=== PATIENT | male | born 1960 | race Hispanic/Latino ===

== ENCOUNTER 2017-05-05 23:00 | Emergency (ER) | payer MEDICAID ==
[2017-05-05 23:05] VITALS: BP 139/75; PULSE 60; RESP 16; TEMP 98.8; O2SAT 98
--- NOTE | 2017-05-05 23:53 | ED PDOC ---
Lower Extremity Pain/Injury Time Seen by Provider: 05/05/17 23:18 Chief Complaint (Nursing): Lower Extremity Problem/Injury Chief Complaint (Provider): left leg swelling History Per: Patient History/Exam Limitations: no limitations Onset/Duration Of Symptoms: Days (1) Current Symptoms Are (Timing): Still Present Additional History Per: Patient Additional Complaint(s): 56 y/o male history of chronic left venous stasis ulcer presents with left leg pain/swelling x 1 day. Patient states ulcer started as a blister from his shoes one year ago and has gotten bigger and not healed since then. He notes traveling back and forth from [place] to [place], last trip >3 months ago. Patient states he was told by a doctor there he may need hyperbaric therapy for wound healing, but he has not followed up with anyone. Denies fever, nausea /vomiting, numbness/weakness left lower extremity, calf pain, recent travel, tobacco use, chest pain, sob. Past Medical History Reviewed: Historical Data, Nursing Documentation, Vital Signs Vital Signs: Last Vital Signs Temp 98.8 F 05/05/17 23:03 Pulse 60 05/05/17 23:03 Resp 16 05/05/17 23:03 BP 139/75 05/05/17 23:03 Pulse Ox 98 05/05/17 23:03 - Medical History PMH: Arthritis (BACK) Denies: Chronic Kidney Disease - Family History Family History: States: Unknown Family Hx - Immunization History Hx Tetanus Toxoid Vaccination: No Hx Influenza Vaccination: No Hx Pneumococcal Vaccination: No - Home Medications Home Medications: Ambulatory Orders Medication Instructions Recorded Sulfamethoxazole/Trimethoprim 1 tab PO BID #10 tab 03/20/17 [Bactrim DS 800 mg-160 mg] oxyCODONE/Acetaminophen [Percocet 1 ea PO Q6H #20 tab 03/20/17 5/325 mg Tab] Naproxen [Naprosyn] 500 mg PO Q12 PRN #20 tablet 05/06/17 Sulfamethoxazole/Trimethoprim 1 tab PO BID #14 tab 05/06/17 [Bactrim DS 800 mg-160 mg] - Allergies Allergies/Adverse Reactions: Allergies Allergy/AdvReac Type Severity Reaction Status Date / Time ceftriaxone [From Rocephin] Allergy ITCHING Verified 03/19/17 01:51 Review of Systems ROS Statement: Except As Marked, All Systems Reviewed And Found Negative Musculoskeletal: Positive for: Leg Pain, Foot Pain Physical Exam - Reviewed Nursing Documentation Reviewed: Yes Vital Signs Reviewed: Yes - Physical Exam Appears: Positive for: Well, Non-toxic, No Acute Distress Head Exam: Positive for: ATRAUMATIC, NORMAL INSPECTION, NORMOCEPHALIC Skin: Positive for: Normal Color Eye Exam: Positive for: Normal appearance ENT: Positive for: Normal ENT Inspection Cardiovascular/Chest: Positive for: Regular Rate, Rhythm Respiratory: Positive for: Normal Breath Sounds Pulses-Dorsalis Pedis (L): 2+ Pulses-Dorsalis Pedis (R): 2+ Pulses-Post. Tibialis (L): 2+ Pulses-Post. Tibialis (R): 2+ Back: Positive for: Normal Inspection Extremity: Positive for: Normal ROM, Pedal Edema (left), Swelling (left lower extremity edematous and tender to palpate with chronic skin changes noted. 5x4cm dried ulceration noted medial left malleolus with + increased surrounding tenderness. No drainage, odor noted. ). 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 neg for DVT. labs, xray, IV toradol ordered Patient evaluated by podiatry resident on-call; venous duplex LLE added with instructions for outpatient follow up if negative. EXAM: US Duplex Left Lower Extremity Veins CLINICAL HISTORY: 56 years old, male; Pain; Leg, lower; Left; Additional info: Lle swelling, redness - R/O dvt TECHNIQUE: Real-time ultrasound scan of the veins of the left lower extremity with color Doppler flow, spectral waveform analysis and compression. COMPARISON: No relevant prior studies available. FINDINGS: Deep veins: Unremarkable. No DVT in the visualized common femoral, femoral, proximal deep femoral or popliteal veins. The veins demonstrate normal color flow, are normally compressible, with normal phasic flow and/or augmentation response. Superficial veins: Unremarkable. Soft tissues: Moderate soft tissue swelling, within the left calf and ankle. No popliteal cyst. IMPRESSION: Normal left lower extremity duplex venous ultrasound. Patient educated on findings, discharged with rx Bactrim DS, Naproxen. Advised follow up Podiatry clinic as instructed. Elevate leg at rest. Return to ED for worsening/concerning symptoms. Disposition - Clinical Impression Clinical Impression: Stasis ulcer of ankle, Cellulitis of left lower extremity - Patient ED Disposition Is Patient to be Admitted: No Counseled Patient/Family Regarding: Studies Performed, Diagnosis, Need For Followup, Rx Given - Disposition Referrals: Augusta Trinidad DPM [Staff Provider] - Disposition: Routine/Home Disposition Time: 03:55 Condition: STABLE Prescriptions: Naproxen [Naprosyn] 500 mg PO Q12 PRN #20 tablet PRN Reason: Pain, Moderate (4-7) Sulfamethoxazole/Trimethoprim [Bactrim DS 800 mg-160 mg] 1 tab PO BID #14 tab Instructions: Cellulitis (ED), Chronic Wound Care (ED), Venous Insufficiency ( GEN)
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
[2017-05-06 01:43] LABS: BASO # 0.1 K/uL (0.0-0.2); EOS # 0.1 K/uL (0.0-0.7); EOS % 2.2 % (0.0-4.0); HEMOGLOBIN 11.4 g/dL (12.0-18.0); LYMPH # 1.3 K/uL (1.0-4.3); MEAN CELL VOLUME 78.2 fl (80.0-94.0); MEAN CORPUSCULAR HEMOGLOBIN 25.1 pg (27.0-31.0); MEAN CORPUSCULAR HGB CONC 32.1 g/dL (33.0-37.0); MEAN PLATELET VOLUME 8.5 fl (7.2-11.7); MONO # 0.6 K/uL (0.0-0.8); MONO % 10.7 % (0.0-10.0); NEUT # 3.6 K/uL (1.8-7.0); NEUT % 63.1 % (50.0-75.0); NRBC % 0.1 % (0.0-0.0); RBC 4.55 Mil/uL (4.40-5.90); RED CELL DISTRIBUTION WIDTH 17.4 % (11.5-14.5); WHITE BLOOD COUNT 5.8 K/uL (4.8-10.8)
[2017-05-06 01:51] LABS: ALB/GLOB RATIO 1.2 (1.0-2.1); ALBUMIN 3.7 g/dL (3.5-5.0); ALT/SGPT 50 U/L (21-72); AST/SGOT 37 U/L (17-59); BLOOD UREA NITROGEN 17 mg/dl (9-20); CALCIUM 8.7 mg/dL (8.4-10.2); GFR AFRICAN-AMERICAN > 60; GFR NON-AFRICAN AMERICAN > 60
--- NOTE | 2017-05-06 03:39 | US ---
EXAM: US Duplex Left Lower Extremity Veins CLINICAL HISTORY: 56 years old, male; Pain; Leg, lower; Left; Additional info: Lle swelling, redness - R/O dvt TECHNIQUE: Real-time ultrasound scan of the veins of the left lower extremity with color Doppler flow, spectral waveform analysis and compression. COMPARISON: No relevant prior studies available. FINDINGS: Deep veins: Unremarkable. No DVT in the visualized common femoral, femoral, proximal deep femoral or popliteal veins. The veins demonstrate normal color flow, are normally compressible, with normal phasic flow and/or augmentation response. Superficial veins: Unremarkable. Soft tissues: Moderate soft tissue swelling, within the left calf and ankle. No popliteal cyst. IMPRESSION: Normal left lower extremity duplex venous ultrasound.
--- NOTE | 2017-05-06 15:00 | RAD ---
PROCEDURE: Left Ankle Radiographs. HISTORY: chronic ulcer medial aspect COMPARISON: None FINDINGS: BONES: No evidence of osteomyelitis. JOINTS: Normal. No osteoarthritis. Ankle mortise maintained. Talar dome intact SOFT TISSUES: Questionable ulcer adjacent to the medial malleolar region. Soft tissue swelling plantar aspect of the foot. OTHER FINDINGS: None. IMPRESSION: Soft tissue swelling, medial ulcer without acute articular or osseous abnormality.
== END 2017-05-06 04:31 | disposition home or self-care (01) ==
LOC: H.ER 23:00
DX: I87.312 Chronic venous hypertension (idiopathic) with ulcer of left lower extremity (principal); L03.116 Cellulitis of left lower limb